=== PATIENT | male | born 1985 | race Caucasian/White ===

== ENCOUNTER 2018-01-30 10:40 | Emergency (ER) | payer OTHER ==
[~2018-01-30] VITALS: Ht 172.7 cm; Wt 99.8 kg
[~2018-01-30 10:40] MED LIST: ALBUTEROL INHAL17 GM IH; AMOXICILLIN 50500 MG PO; AUGMENTIN 875875 MG PO; BACTRIM 400-801 EACH PO; CIPRO; FAMOTIDINE PO; FLOMAX PO; FLOMAX0.4 MG PO; HYDROCODONE-AP1 EAC6 PO; IBUPROFEN 800800 M1 PO; KEFLEX500 MG PO; MEDROLDOSEPACK PO; MEN'S MULTI-VI1 EACH PO; NAPROSYN500 MG PO; NORCO 5-325 TA1 EAC1 PO; NORCO 5-325 TA1 EACH PO; No home meds; PENICILLIN VK250 MG PO; PERCOCET 10-321 EACH PO; PERCOCET 5-3251 EACH PO; TAMIFLU OR; VICOPROFEN 2001 EACH PO; ZOFRAN ODT4 MG PO; ZOFRAN ODT8 MG PO
[2018-01-30] MEDS ORDERED: KEFLEX500 M1 PO (11:29)
[2018-01-30 11:37] VITALS: BP 125/70
== END 2018-01-30 11:39 | disposition home or self-care (01) ==
LOC: M.ERS 10:40
DX: S61.411A Laceration without foreign body of right hand, initial encounter (principal); K21.9 Gastro-esophageal reflux disease without esophagitis; F17.210 Nicotine dependence, cigarettes, uncomplicated; W26.8XXA Contact with other sharp object(s), not elsewhere classified, initial encounter; Y93.89 Activity, other specified; Y92.89 Other specified places as the place of occurrence of the external cause; Y99.8 Other external cause status

== ENCOUNTER 2018-04-23 06:00 | Inpatient (IN) | payer OTHER ==
[~2018-04-23] VITALS: Ht 172.7 cm; Wt 99.8 kg
[~2018-04-23 06:00] MED LIST changes: +KEFLEX500 M1 PO
[2018-04-23 06:04] VITALS: BP 133/93
[2018-04-23 06:27] LABS: ABSOLUTE BASOPHILS 0.1 thou/uL (0.0-0.2); ABSOLUTE EOSINOPHILS 0.4 thou/uL (0.0-0.7); ABSOLUTE LYMPHOCYTES 3.4 thou/uL (0.8-5.3); ABSOLUTE MONOCYTES 0.8 thou/uL (0.0-1.2); ABSOLUTE NEUTROPHILS 7.7 thou/uL (1.6-8.1); BASOPHILS 0.6 %; EOSINOPHILS 3.6 %; HEMATOCRIT 45.9 % (42.0-52.0); HEMOGLOBIN 15.3 gm/dL (14.0-18.0); LYMPHOCYTES 27.5 %; MCHC 33.3 g/dL (28.0-37.0); MONOCYTES 6.5 %; MPV 7.5 fl. (7.2-11.1); NUCLEATED RBCS 0 /100WBC; PLATELET COUNT* 255 thou/uL (150-400); POLYS 61.8 %; RDW-CV 12.9 % (10.5-14.5); WBC 12.4 thou/uL (4.0-11.0)
[2018-04-23 06:46] LABS: ALBUMIN 3.6 g/dL (3.4-5.0); CALCIUM 8.8 mg/dL (8.5-10.1); CREATININE 0.9 mg/dL (0.6-1.3); TOTAL BILIRUBIN 0.1 mg/dL (<0.1-1.0); TOTAL PROTEIN 7.4 g/dL (6.4-8.2)
[2018-04-23 09:02] VITALS: BP 102/49
[2018-04-23 10:34] VITALS: BP 140/92
[2018-04-23 10:42] VITALS: BP 133/96
[2018-04-23 16:00] VITALS: BP 147/94
--- NOTE | 2018-04-23 18:24 | NUR ---
ALERT AND ORIENTED X4. UP AD DOROTHY IN ROOM. IV IS PATENT AND INFUSING. PAIN BEING MANAGED WITH IV PAIN MEDICATION. NAUSEA BEING MANAGED WITH IV NAUSEA MEDICATION. NPO AT THIS TIME. VSS ON ROOM AIR. HOURLY ROUNDS HAVE BEEN MAINTAINED THROUGHOUT SHIFT. CALL LIGHT IS WITHIN REACH. NURSING WILL CONTINUE TO MONITOR.
[2018-04-23 19:45] VITALS: BP 123/75
[2018-04-24] VITALS (7 sets, daily range): BP systolic 100–161; BP diastolic 62–98
[2018-04-24 04:15] LABS: HEMATOCRIT 41.3 % (42.0-52.0); HEMOGLOBIN 13.7 gm/dL (14.0-18.0); MCH 30.1 pg (26.0-34.0); MCHC 33.2 g/dL (28.0-37.0); MCV 90.8 fL (80.0-100.0); RBC 4.54 mil/uL (4.50-6.00); RDW-CV 13.2 % (10.5-14.5); WBC 13.7 thou/uL (4.0-11.0)
[2018-04-24 05:02] LABS: CALCIUM 7.7 mg/dL (8.5-10.1); CREATININE 0.8 mg/dL (0.6-1.3); MAGNESIUM 1.8 mg/dL (1.8-2.4); POTASSIUM 3.6 mmol/L (3.5-5.1); TOTAL BILIRUBIN 0.3 mg/dL (<0.1-1.0); TOTAL PROTEIN 6.1 g/dL (6.4-8.2)
[2018-04-24 14:52] LABS: HEMATOCRIT 43.7 % (42.0-52.0); HEMOGLOBIN 14.5 gm/dL (14.0-18.0); MCH 29.9 pg (26.0-34.0); MCHC 33.3 g/dL (28.0-37.0); MCV 89.9 fL (80.0-100.0); MPV 7.8 fl. (7.2-11.1); NUCLEATED RBCS 0 /100WBC; PLATELET COUNT* 236 thou/uL (150-400); RBC 4.86 mil/uL (4.50-6.00); WBC 18.3 thou/uL (4.0-11.0)
[2018-04-24 15:00] LABS: CALCIUM 8.8 mg/dL (8.5-10.1); CREATININE 0.8 mg/dL (0.6-1.3); POTASSIUM 3.8 mmol/L (3.5-5.1)
[2018-04-24 15:27] LABS: ABSOLUTE LYMPHOCYTES 1.5 thou/uL (0.8-5.3); ABSOLUTE NEUTROPHILS 16.8 thou/uL (1.6-8.1); PLATELET ESTIMATE ADEQUATE
--- NOTE | 2018-04-24 17:24 | NUR ---
PATIENT ALERT AND ORIENTED X 4. VITAL SIGNS STABLE ON 3L O2 NASAL CANULA WITH CAPNO AND CONTINUOUS PULSE OX. AFEBRILE. PERRLA. HAVE NOT AMBULATED PATIENT SINCE SURGERY, DUE TO PAIN AND SEVERE NAUSEA. BOTH PAIN AND NAUSEA BEING MANAGED WITH IV MEDICATIONS. SCD'S IN PLACE. TOLERATED SOME JELLO. HOURLY ROUNDS MAINTAINED THROUGHOUT THE SHIFT. CALL LIGHT WITHIN REACH. NURSING WILL CONTINUE TO MONITOR.
[2018-04-25 04:24] VITALS: BP 137/91
--- NOTE | 2018-04-25 04:52 | NUR ---
PATIENT ALERT AND ORIENTED X4. PAIN CONTROLLED WITH BOTH ORAL AND IV MEDICATIONS. ZOFRAN GIVEN FOR NAUSEA TO GOOD EFFECT. VOIDING ADEQUATELY PER URINAL. ENCOURAGING PATIENT TO AMBULATE, STATES THAT HE WANTS TO GET UP LATER IN THE MORNING. LAP SITES TO ABDOMEN ARE DRY AND INTACT. VITALS STABLE ON 3L O2 WITH CAPNO IN PLACE. WILL CONTINUE TO MONITOR.
[2018-04-25 07:16] LABS: ABSOLUTE MONOCYTES 1.2 thou/uL (0.0-1.2); ABSOLUTE NEUTROPHILS 11.3 thou/uL (1.6-8.1); BASOPHILS 0.3 %; EOSINOPHILS 0.2 %; HEMATOCRIT 43.4 % (42.0-52.0); HEMOGLOBIN 14.5 gm/dL (14.0-18.0); LYMPHOCYTES 19.1 %; MCH 29.7 pg (26.0-34.0); MCHC 33.5 g/dL (28.0-37.0); MCV 88.6 fL (80.0-100.0); MONOCYTES 7.6 %; MPV 7.7 fl. (7.2-11.1); NUCLEATED RBCS 0 /100WBC; PLATELET COUNT* 230 thou/uL (150-400); POLYS 72.8 %; RBC 4.89 mil/uL (4.50-6.00); RDW-CV 12.8 % (10.5-14.5); WBC 15.5 thou/uL (4.0-11.0)
[2018-04-25 07:22] LABS: CALCIUM 8.2 mg/dL (8.5-10.1); CREATININE 0.7 mg/dL (0.6-1.3); POTASSIUM 3.9 mmol/L (3.5-5.1)
[2018-04-25] MEDS ORDERED: COLACE100 MG PO (07:26)
[2018-04-25 12:28] VITALS: BP 137/91
[2018-04-25] MEDS ORDERED: HYDROCODONE-AP1 EAC6 PO (12:39)
[2018-04-25 13:59] VITALS: BP 137/91
--- NOTE | 2018-04-25 14:17 | NUR ---
ASSUMED CARES OF PT AT 0700. PT IN BED, BED IN LOW LOCKED POSITION. CALL BUTTON AND PERSONAL ITEMS IN PT REACH. PT USES CALL BUTTON APPROPRIATELY. PT A&O X4, HRRR PER AUSCULTATION, LUNGS WHEEZY IN UPPER LOBES BILATERALLY, RIGHT LOWER LOBE WHEEZY, LEFT LOWER LOBE CLEAR, PT REPORTS HE SMOKES. INCENTIVE SPIROMETER ENCOURAGED AND REEDUCATED. PT NOT SOA ON EXERTION. FOUR LAP SITES ON ABD WITH GAUZE AND TRANSPARENT COVER, C/D/I. ABD SOFT TO FIRM DEPENDING ON AREA. MILD NAUSEA AND PAIN REPORTED. ORAL PAIN MED EFFECTIVE THIS MORNING ROUND. HOURLY ROUNDING CONTINUES. PT PROGRESSING TOWARDS GOAL. PT UP INDEPENDENTLY, PASSING GAS AND BURPING BUT NO BM AT THIS TIME. INCREASED DIET TOLERATED WELL, NO N/V. VSS ON RA. PT CLEARED TO DISCHARGE HOME WITH SPOUSE. WILL CONTINUE TO MONITOR PT STATUS AND PROGRESS/PAIN/NAUSEA. MEDICINE AND SURGERY CLEARED PT. DISCHARGE PROCESS TO START.
[2018-04-25 15:30] VITALS: BP 137/91
--- NOTE | 2018-04-25 17:08 | NUR ---
PT CLEARED FOR DISCHARGE. IV REMOVED. PT PACKED PERSONAL BELONGINGS AND TAKEN WITH HIM AND SPOUSE. DISCHARGE EDUCATION, STROKE EDUCATION, FOLLOW UP APPT., MEDS REVIEWED AND QUESTIONS ANSWERED. PRESCRIPTION GIVEN WITH CARE NOTES. PT STABLE AT DISCHARGE. PT ESCORTED BY WC WITH NURSING STAFF AND SPOUSE TO CAR TO GO HOME. DISCHARGE COMPLETED AT 1538.
--- NOTE | 2018-05-02 08:10 | PATH ---
[address] [address] PATHOLOGY RPT PROCEDURE Name: MERY KYLE Room: [address] IN .R.#: [id number] Admission: 04/23/18 Date of : 83 Discharge: 04/25/18 Report #: [id number] Path Case #: [id number] [facility] Accession Number: [id number] . 01 Material submitted: . GALLBLADDER . 01 Clinical history: . Cholecystitis . 02 Diagnosis: Gallbladder: - Chronic cholecystitis. (TIESHA:pit; 04/26/2018) QTP/04/27/2018 . 02 Electronically signed: . Hema Rios MD, Pathologist NPI- [id number] . 01 Gross description: . The specimen is received in formalin, labeled "Mery Kyle gallbladder". Received is an intact gallbladder measuring 6.8 x 3.2 x 3.2 cm in greatest dimensions displaying blue-botello serosal surfaces. Opening the gallbladder reveals a velvety, bile-stained mucosa, with the gallbladder wall thickness of 0.1 cm. Calculi are not present and no masses or lesions are noted grossly. Sql Application Developer sections from the cystic neck, body, and fundus of the gallbladder are submitted in cassette A1. (CAA; 04/25/2018) QAC/QAC . 02 Pathologist provided ICD-10: K81.1 . 02 CPT . 806143 Performed at: [address], [place] [id number] MD Kayode Francisco MD Phone: [phone] Performed at: 02 [facility] [address], [place], [place] [id number] MD Hema Rios MD Phone: [phone]
--- NOTE | 2018-05-07 13:45 | OP ---
[address] [address] OPERATIVE REPORT Name: MERY KYLE Room: [address] IN M.R.#: [id number] Admission: 04/23/18 Attend Phys: Alberto Langford MD Discharge: 04/25/18 Date of : 83 Report #: [id number] THIS REPORT FOR: //name// CC: Janine Langford DICTATED BY: Martín Koo DO PREOPERATIVE DIAGNOSIS: Acute cholecystitis. POSTOPERATIVE DIAGNOSIS: Acute cholecystitis. SURGEON: Alyssia Lenz DO. TEST BAKER: Martín Koo DO OPERATION PERFORMED: Laparoscopic cholecystectomy with Surgicel placement in the gallbladder fossa. ANESTHESIA TYPE: General. ESTIMATED BLOOD LOSS: 50 mL. SPECIMENS REMOVED: Gallbladder. COMPLICATIONS: None. DISPOSITION: PACU to Med/Surg floor. INDICATIONS: The patient is a pleasant 33-year-old male who presented with complaint of severe epigastric and right upper quadrant abdominal pain. He had some subjective fevers and chills, nausea, vomiting and diarrhea. He reported some abdominal distention and some postprandial abdominal pain. It was discussed with him that a laparoscopic cholecystectomy would be indicated at this time. Risks and complications were discussed include bleeding, infection, injury to surrounding structures, risk of injury to bile ducts, risk of needing drain placement, risk of open procedure and risk of anesthesia. He acknowledged his understanding of all risks and complications and agreed to proceed with surgery. DESCRIPTION OF PROCEDURE: After consent was obtained, the patient was taken to the operating room and placed on the operating room table in supine position. SCDs were placed to both lower extremities. Two grams Ancef given preoperatively. General anesthesia was then administered without any complication. The patient was then prepped and draped in the standard sterile fashion. A timeout was performed to confirm [place] [address] OPERATIVE REPORT Name: MERY KYLE Room: [address] IN [facility].#: [id number] Admission: 04/23/18 Attend Phys: Alberto Langford MD Discharge: 04/25/18 Date of : 83 Report #: [id number] Infraumbilical incision was made in transverse fashion using 11 blade scalpel after 10 mL of Marcaine was injected in the subcutaneous tissue. S retractors were then used to bluntly dissect down to the level of the fascia. The fascia was then grasped between 2 Kochers and elevated. Fascia was scored using electrocautery. Margret clamp was then used to bluntly enter the abdomen. Two stitches of 0 Vicryl were placed on either side of the fascia. Barbie trocar was then placed into the infraumbilical incision and secured to the abdomen. Insufflation was initiated without any complication. Camera was introduced into the abdomen and intra-abdominal contents were inspected. The gallbladder could be seen just underneath the liver. A second trocar was then placed in subxiphoid under direct visualization. A laparoscopic grasper was then used to pull the omentum caudad and the gallbladder could then be easily visualized. Two more trocars were then placed in the right upper quadrant under direct visualization. The patient was placed in reverse Trendelenburg and turned to the left. The gallbladder was then grasped and elevated. Upon dissection of the right lateral aspect of the gallbladder along with cystic duct, there was some bleeding that was encountered. This was suspected to be a portion of the artery that was in a nontraditional anatomical position. The bleeding was controlled with clips and dissection of the cystic duct was then carried out successfully. The cystic duct was then clipped twice distal and twice proximal, and cut. More bleeding was then encountered just posterior to the cystic duct. Again, this bleeding was easily recognized and clipped. The cystic artery was visualized at this point and clipped and cut. Hemostasis was ensured with electrocautery. The gallbladder was then dissected off the bed of the liver and multiple punctate areas of bleeding were encountered. These were all cauterized and complete hemostasis was ensured before completely dissecting gallbladder off the liver. The gallbladder was then placed into a laparoscopic EndoCatch bag. The gallbladder fossa was irrigated copiously and suction was used to remove all fluid. After complete hemostasis was assured, Surgicel was then placed into the gallbladder fossa. Insufflation was removed from the abdomen and all trocar ports were removed under direct visualization. The infraumbilical Barbie trocar was then removed along with the gallbladder and its contents. 3-0 Vicryl were used to close the subcutaneous tissues of the infraumbilical and subxiphoid incisions, 4-0 Monocryl were then used to close all skin incisions. Sterile dressings were placed over top. The patient was awoken from anesthesia without any complication. All needle counts were correct. All sponge counts were correct and all instrument counts were correct at the end of the case. The patient was then transferred to PACU in stable condition. <ELECTRONICALLY SIGNED> By: Alyssia Lenz DO 05/07/18 1345 1244 [id number] Lenz DO /nt
== END 2018-04-25 15:38 | disposition home or self-care (01) | DRG 854 ==
LOC: M.ERS 06:00 → M.ORTHSURG 09:01 → M.TBA-ER 09:01 → M.ORTHSURG 10:35
PROVIDERS: Emergency Medicine; Surgery; ADMIT Internal Medicine
PROC: 0FT44ZZ Resection of Gallbladder, Percutaneous Endoscopic Approach (ICD-10-PCS; principal; 2018-04-23)
DX: A41.9 Sepsis, unspecified organism (principal); K81.0 Acute cholecystitis; J45.909 Unspecified asthma, uncomplicated; F17.210 Nicotine dependence, cigarettes, uncomplicated; E66.9 Obesity, unspecified; K21.9 Gastro-esophageal reflux disease without esophagitis; K76.0 Fatty (change of) liver, not elsewhere classified; Z87.442 Personal history of urinary calculi; Z82.49 Family history of ischemic heart disease and other diseases of the circulatory system; Z68.33 Body mass index [BMI] 33.0-33.9, adult

== ENCOUNTER 2018-12-05 18:12 | Emergency (ER) | payer OTHER ==
[~2018-12-05] VITALS: Ht 170.2 cm; Wt 94.3 kg
[~2018-12-05 18:12] MED LIST changes: +COLACE100 MG PO
[2018-12-05] MEDS ORDERED: MEDROLDOSEPACK PO (18:39)
[2018-12-05] MEDS ORDERED: ROBAXIN500 MG PO (18:39)
[2018-12-05] MEDS ORDERED: NAPROSYN500 MG PO (18:39)
[2018-12-05 18:50] VITALS: BP 122/84
== END 2018-12-05 18:51 | disposition home or self-care (01) ==
LOC: M.ERS 18:12
DX: S39.012A Strain of muscle, fascia and tendon of lower back, initial encounter (principal); K21.9 Gastro-esophageal reflux disease without esophagitis; J45.909 Unspecified asthma, uncomplicated; F17.210 Nicotine dependence, cigarettes, uncomplicated; X58.XXXA Exposure to other specified factors, initial encounter; Y93.89 Activity, other specified; Y92.89 Other specified places as the place of occurrence of the external cause; Y99.8 Other external cause status

== ENCOUNTER 2020-04-30 10:34 | Inpatient (IN) | payer BC ==
[~2020-04-30] VITALS: Ht 170.2 cm; Wt 91.0 kg
--- NOTE | ~2020-04-30 | CON ---
[address] [address] CONSULTATION Name: SAROJMERYOZZIE ACHARYA Room: [address] IN .R.#: [id number] Admission: 05/01/20 Attend Phys: Alberto Langford MD Discharge: Date of : 83 Report #: [id number] THIS REPORT FOR: //name// cc: CLAUDIA Johnson family physician/PCP CLAUDIA - Elizabeth family physician/PCP ~ THIS REPORT FOR: //name// CC: [facility] physician/PCP Alberto Langford DATE OF SERVICE: 05/01/2020 REASON FOR CONSULT: Noncardiac chest pain. HISTORY OF PRESENT ILLNESS: This is a 35-year-old male who has a history of pancreatitis in the past, who presents with nausea, vomiting, and what appears to be noncardiac chest pain. He reports that occasionally he may have reflux symptoms mainly at night when he eats late. He reports that before admission, he started having nausea type symptoms with severe epigastric pain radiating to chest, which was not gone away. The patient denies any lower GI symptoms as he denies diarrhea, constipation, hematochezia or melena. PAST MEDICAL HISTORY: Significant for history of asthma, gastroesophageal reflux disease, pancreatitis, gallbladder disease, status post cholecystectomy and GERD. ALLERGIES: No known drug allergy. MEDICATIONS: Please refer to MAR. SOCIAL HISTORY: The patient lives at home, is and his is . He reports that he works very hard and has been working daily for the past 22 days. He may occasionally have alcoholic beverage, but smokes daily. FAMILY HISTORY: Negative for GI malignancy. PHYSICAL EXAMINATION: VITAL SIGNS: Reveals normal vitals. LUNGS: Clear. CARDIOVASCULAR: Regular. ABDOMEN: Soft, nontender, nondistended. Bowel sounds are positive. NEUROLOGIC: The patient is alert, oriented x 3, no [place] [address] CONSULTATION Name: MERY KYLE Room: [address]#: [id number] Admission: 05/01/20 Attend Phys: Alberto Langford MD Discharge: Date of : 83 Report #: [id number] LABORATORY DATA: Reveal sodium of 139, potassium 4.3, BUN is 11, creatinine 0.8. Lipase is 88. LFTs are normal. WBC was 15.5, down to 12.8 with platelets of 250 down to 199, hemoglobin is 13.5. IMAGING: CT angiogram was obtained. There is no evidence of pancreatitis or pulmonary embolism. There is also no evidence of aortic dissection or aneurysm. Nonobstructing bilateral nephrolithiasis was noted. ASSESSMENT AND PLAN: The patient with elevated lipase to 500 range, who also has history of pancreatitis, but CT does not suggest any evidence of pancreatitis and LFTs are normal. He reports that he has history of gastroesophageal reflux disease. His lipase today is down to 88; therefore, we will perform an upper endoscopy and make further recommendation based on finding. The patient is agreeable with plan. By: 1058 [id number] Murillo MD /nt
[~2020-04-30 10:34] MED LIST changes: +ROBAXIN500 MG PO
[2020-04-30 10:39] VITALS: BP 133/86
[2020-04-30 11:14] LABS: ABSOLUTE BASOPHILS 0.1 thou/uL (0.0-0.2); ABSOLUTE EOSINOPHILS 0.1 thou/uL (0.0-0.7); ABSOLUTE LYMPHOCYTES 1.8 thou/uL (0.8-5.3); ABSOLUTE MONOCYTES 0.5 thou/uL (0.0-1.2); ABSOLUTE NEUTROPHILS 13.2 thou/uL (1.6-8.1); BASOPHILS 0.3 %; EOSINOPHILS 0.5 %; HEMATOCRIT 44.7 % (42.0-52.0); HEMOGLOBIN 15.3 gm/dL (14.0-18.0); LYMPHOCYTES 11.4 %; MCHC 34.2 g/dL (28.0-37.0); MCV 90.6 fL (80.0-100.0); MPV 7.7 fl. (7.2-11.1); NUCLEATED RBCS 0 /100WBC; PLATELET COUNT* 250 thou/uL (150-400); POLYS 84.8 %; RBC 4.93 mil/uL (4.50-6.00); RDW-CV 13.2 % (10.5-14.5); WBC 15.5 thou/uL (4.0-11.0)
[2020-04-30 11:17] LABS: CALCIUM 8.7 mg/dL (8.5-10.1); CREATININE 0.9 mg/dL (0.6-1.3); POTASSIUM 3.9 mmol/L (3.5-5.1)
[2020-04-30 11:27] LABS: ALBUMIN 4.1 g/dL (3.4-5.0); MAGNESIUM 1.9 mg/dL (1.8-2.4); TOTAL BILIRUBIN 0.3 mg/dL (<0.1-1.0); TOTAL PROTEIN 7.6 g/dL (6.4-8.2)
--- NOTE | 2020-04-30 13:43 | EKG ---
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
[2020-04-30 14:27] LABS: CHOLESTEROL 118 mg/dL (<200); HDL CHOLESTEROL 39 mg/dL (>40); LDL CHOLESTEROL 66 mg/dL (<100); TRIGLYCERIDE 68 mg/dL (<150); VLDL 14 mg/dL (<40)
[2020-04-30 14:31] LABS: SERUM ASSESSMENT Clear
[2020-04-30 18:15] VITALS: BP 144/84
[2020-04-30 18:50] VITALS: BP 138/84
[2020-04-30 20:00] VITALS: BP 115/66
[2020-05-01] VITALS (7 sets, daily range): BP systolic 97–119; BP diastolic 51–70
[2020-05-01 05:20] LABS: HEMATOCRIT 39.8 % (42.0-52.0); HEMOGLOBIN 13.5 gm/dL (14.0-18.0); MCH 30.7 pg (26.0-34.0); MCV 90.4 fL (80.0-100.0); MPV 7.7 fl. (7.2-11.1); RBC 4.4 mil/uL (4.50-6.00); WBC 12.8 thou/uL (4.0-11.0)
[2020-05-01 05:40] LABS: ALBUMIN 3.2 g/dL (3.4-5.0); CALCIUM 7.8 mg/dL (8.5-10.1); CREATININE 0.8 mg/dL (0.6-1.3); MAGNESIUM 1.9 mg/dL (1.8-2.4); POTASSIUM 3.3 mmol/L (3.5-5.1); TOTAL BILIRUBIN 0.4 mg/dL (<0.1-1.0); TOTAL PROTEIN 6.1 g/dL (6.4-8.2)
--- NOTE | 2020-05-01 14:41 | CON ---
[address] [address] CONSULTATION Name: SAROJMERYOZZIE ACHARYA Room: [address] IN M.R.#: [id number] Admission: 05/01/20 Attend Phys: Alberto Langford MD Discharge: Date of : 83 Report #: [id number] THIS REPORT FOR: //name// cc: CLAUDIA Johnson family physician/PCP CLAUDIA - No family physician/PCP ~ THIS REPORT FOR: //name// CC: CLAUDIA physician/PCP Alberto Langford DATE OF SERVICE: 05/01/2020 CARDIOLOGY CONSULTATION HISTORY OF PRESENT ILLNESS: The patient is a 35-year-old white male who I was asked to see in the hospital after he complained of chest pressure. The patient has no previous history of heart disease. He stays fairly active. He has had no previous cardiac evaluation. He states he was doing well until yesterday morning, he awakened felt a pressure in his chest, it was hard to breathe, he vomited and felt nauseated. The pressure persisted. He finally drove himself here to [place] and admitted. He continued to have the pressure overnight. He still has it this morning. His abdomen is tender. He has had no diarrhea. There was no significant blood in his vomit. He did feel diaphoretic. There is no radiation of the pain into his arms. He denies exertional dyspnea, palpitations, syncope or peripheral edema. PAST MEDICAL HISTORY: He has had cholecystectomy. He has borderline diabetes. He has been told his cholesterol was high in the past. He has arthritis throughout his body. MEDICATIONS: He takes Motrin as needed for the pain. ALLERGIES: He has no known drug allergies. FAMILY HISTORY: He had a great uncle who suddenly. SOCIAL HISTORY: He is , lives in [place]. 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 Smokes half pack of cigarettes a day. No alcohol abuse. He does take cannabis for his arthritis. No other illicit drug use. REVIEW OF SYSTEMS: No history of stroke. He has asthma as a child. He has had pancreatitis before. He has had kidney stones. No cancer. No skin problems. No psychiatric illness. PHYSICAL EXAMINATION: GENERAL: Revealed a young white male, who [place] [address] CONSULTATION Name: MERY KYLE Room: [address]#: [id number] Admission: 05/01/20 Attend Phys: Alberto Langford MD Discharge: Date of : 83 Report #: [id number] VITAL SIGNS: His blood pressure is 120/60 and pulse is 80. He was afebrile. HEENT: He was anicteric. Conjunctivae pink. NECK: Supple. CHEST: Revealed expiratory wheezes. CARDIOVASCULAR: Regular rate and rhythm without murmur or rub. ABDOMEN: Mildly tender, soft. EXTREMITIES: Had no edema. Posterior tibial pulses 2+ bilaterally. SKIN: Warm and dry. NEUROLOGIC: Nonfocal. DIAGNOSTIC AND LABORATORY DATA: His ECG showed sinus bradycardia, early repolarization. His workup, he had sodium 142, potassium 3.3, creatinine 0.8. Lipase is 529. His troponins all 0.06. Cholesterol 118, triglycerides 68, HDL 39, and LDL 66. White blood cell count 12.8 and hemoglobin 13.5. His x-rays, the patient had a portable chest x-ray in the Emergency Room last night that showed normal heart size and clear lung barroso. He had a CT scan of the chest using a PE protocol that showed no aortic dissection, kidney stones, and no pulmonary embolus. IMPRESSION AND RECOMMENDATIONS: 1. Chest pressure. Suspect noncardiac. No ECG changes, no rise in troponin. Recommend no further cardiac evaluation. 2. Sinus bradycardia. I would avoid beta-blockers. Check thyroid function studies. Possible vasovagal. 3. Nausea, epigastric pain and vomiting. Suspect gastroenteritis. 4. Elevated lipase. Possible pancreatitis. 5. History of arthritis. 6. Tobacco abuse. 7. Wheezing. Suspect chronic obstructive pulmonary disease. Recommend bronchodilators. <ELECTRONICALLY SIGNED> By: Jose Pelletier MD, [facility] 05/01/20 1441 0828 [id number] Pelletier MD, FAC /nt
[2020-05-02 04:00] VITALS: BP 125/62
[2020-05-02 04:59] LABS: CALCIUM 8.4 mg/dL (8.5-10.1); CREATININE 0.8 mg/dL (0.6-1.3)
[2020-05-02 05:01] LABS: POTASSIUM 4.3 mmol/L (3.5-5.1)
[2020-05-02 07:22] VITALS: BP 116/76
[2020-05-02] MEDS ORDERED: PROTONIX40 M2 PO (11:32)
[2020-05-02 11:51] VITALS: BP 116/76
[2020-05-02 16:12] VITALS: BP 133/78
== END 2020-05-02 18:15 | disposition home or self-care (01) | DRG 391 ==
LOC: M.ERS 10:34 → M.TBA-ER 13:23 → M.2W 18:44
PROVIDERS: Emergency Medicine Emergency Medical Services; ADMIT Internal Medicine; ATTEND Internal Medicine
PROC: 0DB68ZX Excision of Stomach, Via Natural or Artificial Opening Endoscopic, Diagnostic (ICD-10-PCS; principal; 2020-05-02)
DX: K29.70 Gastritis, unspecified, without bleeding (principal); K85.90 Acute pancreatitis without necrosis or infection, unspecified; K21.9 Gastro-esophageal reflux disease without esophagitis; J45.909 Unspecified asthma, uncomplicated; R00.1 Bradycardia, unspecified; E66.9 Obesity, unspecified; I10 Essential (primary) hypertension; E87.6 Hypokalemia; K20.9 Esophagitis, unspecified; Z90.49 Acquired absence of other specified parts of digestive tract; Z68.31 Body mass index [BMI] 31.0-31.9, adult; Z82.49 Family history of ischemic heart disease and other diseases of the circulatory system; Z79.899 Other long term (current) drug therapy; Z20.828 Contact with and (suspected) exposure to other viral communicable diseases

== ENCOUNTER 2021-01-18 12:04 | Emergency (ER) | payer OTHER ==
[~2021-01-18] VITALS: Ht 170.2 cm; Wt 104.3 kg
[~2021-01-18 12:04] MED LIST changes: +CELEBREX50 MG PO; +HYDROCODON-ACE1 EAC7 PO; +PROTONIX40 M2 PO
[2021-01-18] MEDS ORDERED: CELEBREX50 MG PO (12:12)
[2021-01-18] MEDS ORDERED: VITAMIN D310 MC2 PO (12:13)
[2021-01-18] MEDS ORDERED: PROZAC 10 MG CA10 MG PO (12:13)
[2021-01-18] MEDS ORDERED: MAGNESIUM250 M1 PO (12:13)
[2021-01-18 12:28] LABS: ABSOLUTE BASOPHILS 0.1 thou/uL (0.0-0.2); ABSOLUTE EOSINOPHILS 0.4 thou/uL (0.0-0.7); ABSOLUTE LYMPHOCYTES 4.6 thou/uL (0.8-5.3); ABSOLUTE MONOCYTES 1.1 thou/uL (0.0-1.2); ABSOLUTE NEUTROPHILS 6.5 thou/uL (1.6-8.1); BASOPHILS 0.9 %; EOSINOPHILS 3.5 %; HEMATOCRIT 47.8 % (42.0-52.0); HEMOGLOBIN 15.8 gm/dL (14.0-18.0); LYMPHOCYTES 36.3 %; MCH 29.4 pg (26.0-34.0); MCV 89.2 fL (80.0-100.0); MONOCYTES 8.6 %; MPV 7.3 fl. (7.2-11.1); NUCLEATED RBCS 0 /100WBC; PLATELET COUNT* 271 thou/uL (150-400); POLYS 50.7 %; RBC 5.36 mil/uL (4.50-6.00); RDW-CV 13.1 % (10.5-14.5); WBC 12.8 thou/uL (4.0-11.0)
[2021-01-18 12:36] LABS: CALCIUM 8.7 mg/dL (8.5-10.1); POTASSIUM 3.7 mmol/L (3.5-5.1)
[2021-01-18 12:40] LABS: ALBUMIN 3.9 g/dL (3.4-5.0); APTT 27.3 Seconds (25.0-31.3); PROTIME 10.3 Seconds (9.20-11.50); TOTAL BILIRUBIN 0.3 mg/dL (<0.1-1.0); TOTAL PROTEIN 7.8 g/dL (6.4-8.2)
[2021-01-18] MEDS ORDERED: PROMS25 WY RECTAL (14:48)
[2021-01-18] MEDS ORDERED: PHENERGAN 25 MG25 M1 PO (14:48)
[2021-01-18 15:10] VITALS: BP 133/83
--- NOTE | 2021-01-20 17:30 | EKG ---
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
== END 2021-01-18 15:10 | disposition home or self-care (01) ==
LOC: M.ERS 12:04
PROVIDERS: Nurse Practitioner Family
DX: F12.188 Cannabis abuse with other cannabis-induced disorder (principal); R11.2 Nausea with vomiting, unspecified; K21.9 Gastro-esophageal reflux disease without esophagitis; J45.909 Unspecified asthma, uncomplicated; E66.9 Obesity, unspecified; F17.210 Nicotine dependence, cigarettes, uncomplicated; Z68.36 Body mass index [BMI] 36.0-36.9, adult; Z90.49 Acquired absence of other specified parts of digestive tract; Z79.899 Other long term (current) drug therapy